=== PATIENT | female | born 1970 | race Caucasian/White ===

== ENCOUNTER 2017-10-15 16:24 | Emergency (ER) | payer SELFPAY ==
[2017-10-15 16:35] VITALS: TEMP 98.1
[2017-10-15] MEDS ORDERED: ONDANSETRON 4 MG/2 ML VIAL IVP ONE (17:07)
[2017-10-15] MEDS ORDERED: fentaNYL 100 MCG/2 ML INJ IVP ONE (17:07)
--- NOTE | 2017-10-15 17:08 | EDPHY ---
H & P Time Seen by Provider: 10/15/17 16:52 HPI/ROS: CHIEF COMPLAINT: Left-sided back and flank pain HISTORY OF PRESENT ILLNESS: Patient's symptoms started 24 hr ago. No known trauma. Severe left flank pain which is sometimes worse with movement but better standing. She had some dysuria today as well. Pain does not radiate to the anterior abdomen. Not associated with fevers or chills or vomiting or diarrhea. No skin rash. Symptoms moderate to severe currently. REVIEW OF SYSTEMS: Eye: no change in vision ENT: no sore throat Cardiac: no chest pain or syncope Pulmonary: no cough or SOB Abdomen: no vomiting, diarrhea, abdominal pain Musculoskeletal: HPI Skin: no rash Neuro: no headache Constitutional: no fever : HPI A comprehensive 10 point review of systems is otherwise negative aside from elements mentioned in the history of present illness. PAST MEDICAL HISTORY: and tubal ligation Social history: Works as a [employer] General Appearance: Alert and conversant, cooperative. Eyes: No scleral icterus. ENT, Mouth: Normal mucous membranes. Respiratory: Normal respiratory effort, breath sounds equal, lungs are clear to auscultation. Cardiovascular: Regular rate and rhythm. Gastrointestinal: Abdomen is soft and non tender. Neurological: Alert and oriented x3. Normally conversant. Face symmetric, normal movement and sensation in all extremities. Skin: Ecchymosis over the middle phalanx on the volar surface of the right ring finger. No erythema. No swelling. No lymphangitis. No decrease in the range of motion. Musculoskeletal: Patient has some left CVA and lower paraspinal tenderness. She prefers to be standing. She has normal flexion extension of all fingers of the right hand and no bony tenderness on the right ring finger. No rotation and no tenderness over the area of ecchymosis. Psychiatric: Not agitated. Emergency Department course/MDM: Urine dip negative for blood. Possibly muscular but with dysuria concern for renal colic or renal infarct. Her right ring finger does not appear fractured and there is some ecchymosis but it is not tender to palpation. She has describing numbness and tingling distally but she has preserved capillary refill and motor and sensory to light touch. 1820: Results discussed with the patient, including CT reported by Dr. Duarte at 6:13 p.m. is negative except for old scarring in the left kidney 15 mg IV Toradol, 1 oral Percocet. Most likely muscular. Does not appear to be renal infarct or a kidney stone. I think her right ring finger can be managed by observation with follow-up if things change. Smoking Status: Never smoked Constitutional: Initial Vital Signs Temperature (C) 36.7 C 10/15/17 16:32 Heart Rate 69 10/15/17 16:32 Respiratory Rate 16 10/15/17 16:32 Blood Pressure 134/89 H 10/15/17 16:32 O2 Sat (%) 96 10/15/17 16:32 O2 Delivery Mode Room Air Allergies/Adverse Reactions: codeine [Codeine] Allergy (Verified 12/18/10 18:01) Vomiting Home Medications: Medication Instructions Recorded NO HOME MEDS 12/18/10 Medical Decision Making - Diagnostics Imaging Results: Imaging Impressions Abdomen CT 10/15/17 17:25 Impression: 1. No acute abnormalities in the abdomen or pelvis. 2. Left renal scarring. 3. Ventral pelvic wall hernia. Dr. Pina discussed these findings by telephone with KANDICE MERCADO on 2016 at 18:11. Differential Diagnosis: Differential diagnosis considered for flank pain including but not limited to musculoskeletal causes, kidney stone, pyelonephritis, shingles, and intra- abdominal causes such as diverticulitis and appendicitis. - Data Points Laboratory Results: Laboratory Results 10/15/17 17:15 10/15/17 17:15 10/15/17 10/15/17 10/15/17 17:15 17:15 17:13 WBC 8.95 10^3/uL 10^3/uL (3.80-9.50) RBC 4.68 10^6/uL 10^6/uL (4.18-5.33) Hgb 15.0 g/dL g/dL (12.6-16.3) POC Hgb 14.6 gm/dL gm/dL (12.6-16.3) Hct 42.5 % % (38.0-47.0) POC Hct 43 % % (38-47) MCV 90.8 fL fL (81.5-99.8) MCH 32.1 pg pg (27.9-34.1) MCHC 35.3 g/dL g/dL (32.4-36.7) RDW 12.2 % % (11.5-15.2) Plt Count 178 10^3/uL 10^3/uL (150-400) MPV 10.2 fL fL (8.7-11.7) Neut % (Auto) 44.6 % % (39.3-74.2) Lymph % (Auto) 40.9 % % (15.0-45.0) [place] % (Auto) 6.9 % % (4.5-13.0) Eos % (Auto) 6.7 % % (0.6-7.6) Baso % (Auto) 0.6 % % (0.3-1.7) Nucleat RBC Rel Count 0.0 % % (0.0-0.2) Absolute Neuts (auto) 3.99 10^3/uL 10^3/uL (1.70-6.50) Absolute Lymphs (auto) 3.66 10^3/uL H 10^3/uL (1.00-3.00) Absolute Monos (auto) 0.62 10^3/uL 10^3/uL (0.30-0.80) Absolute Eos (auto) 0.60 10^3/uL H 10^3/uL (0.03-0.40) Absolute Basos (auto) 0.05 10^3/uL 10^3/uL (0.02-0.10) Absolute Nucleated RBC 0.00 10^3/uL 10^3/uL (0-0.01) Immature Gran % 0.3 % % (0.0-1.1) Immature Gran # 0.03 10^3/uL 10^3/uL (0.00-0.10) POC Sodium 141 mEq/L mEq/L (134-144) Sodium 145 mEq/L H mEq/L (134-144) POC Potassium 4.1 mEq/L mEq/L (3.3-5.0) Potassium 4.4 mEq/L mEq/L (3.5-5.2) POC Chloride 104 mEq/L mEq/L (97-110) Chloride 106 mEq/L mEq/L (97-110) Carbon Dioxide 24 mEq/l mEq/l (22-31) Anion Gap 15 mEq/L mEq/L (8-16) POC BUN 19 mg/dL mg/dL (7-23) BUN 16 mg/dL mg/dL (7-23) Creatinine 0.8 mg/dL mg/dL (0.6-1.0) POC Creatinine 0.8 mg/dL mg/dL (0.6-1.0) Estimated GFR > 60 Glucose 79 mg/dL mg/dL (70-100) POC Glucose 82 mg/dL mg/dL (70-100) Calcium 9.9 mg/dL mg/dL (8.5-10.4) Urine Color Urine Appearance Urine pH Ur Specific [place] Urine Protein Urine Ketones Urine Blood Urine Nitrate Urine Bilirubin Urine Urobilinogen Ur Leukocyte Esterase Urine Glucose 10/15/17 17:03 WBC RBC Hgb POC Hgb Hct POC Hct MCV MCH MCHC RDW Plt Count MPV Neut % (Auto) Lymph % (Auto) [place] % (Auto) Eos % (Auto) Baso % (Auto) Nucleat RBC Rel Count Absolute Neuts (auto) Absolute Lymphs (auto) Absolute Monos (auto) Absolute Eos (auto) Absolute Basos (auto) Absolute Nucleated RBC Immature Gran % Immature Gran # POC Sodium Sodium POC Potassium Potassium POC Chloride Chloride Carbon Dioxide Anion Gap POC BUN BUN Creatinine POC Creatinine Estimated GFR Glucose POC Glucose Calcium Urine Color PALE YELLOW Urine Appearance CLEAR Urine pH 6.0 (5.0-7.5) Ur Specific [place] 1.002 (1.002-1.030) Urine Protein NEGATIVE (NEGATIVE) Urine Ketones NEGATIVE (NEGATIVE) Urine Blood NEGATIVE (NEGATIVE) Urine Nitrate NEGATIVE (NEGATIVE) Urine Bilirubin NEGATIVE (NEGATIVE) Urine Urobilinogen NEGATIVE EU EU (0.2-1.0) Ur Leukocyte Esterase NEGATIVE (NEGATIVE) Urine Glucose NEGATIVE (NEGATIVE) Medications Given: Discontinued Medications Fentanyl (Sublimaze) 100 mcg IVP EDNOW ONE Stop: 10/15/17 17:08 Last Admin: 10/15/17 17:41 Dose: 100 mcg Ketorolac Tromethamine (Toradol) 15 mg IVP EDNOW ONE Stop: 10/15/17 18:28 Last Admin: 10/15/17 18:35 Dose: 15 mg Ondansetron HCl (Zofran) 4 mg IVP EDNOW ONE Stop: 10/15/17 17:08 Last Admin: 10/15/17 17:41 Dose: 4 mg Oxycodone/Acetaminophen (Percocet 5/325) 1 tab PO EDNOW ONE Stop: 10/15/17 18:28 Last Admin: 10/15/17 18:36 Dose: 1 tab Oxycodone/Acetaminophen (Percocet 5/325mg Prepack#4) 1 btl TAKEHOME EDNOW ONE Stop: 10/15/17 18:29 Last Admin: 10/15/17 18:37 Dose: 1 btl Point of Care Test Results: 10/15/17 17:13 POC Sodium 141 POC Potassium 4.1 POC Chloride 104 POC BUN 19 POC Creatinine 0.8 POC Glucose 82 Departure - Departure Disposition: Home, Routine, Self-Care Clinical Impression: Left flank pain Condition: Good Instructions: Flank Pain (ED) Referrals: Emily Mendoza MD [Medical Doctor] - As per Instructions
[2017-10-15 17:17] LABS: COLOR PALE YELLOW; LEUKOCYTE ESTERASE,URINE NEGATIVE (NEGATIVE); NITRITE,URINE NEGATIVE (NEGATIVE)
[2017-10-15] MEDS ORDERED: IOPAMIDOL (ISOVUE-300) 100 ML BTL ONE (17:26)
[2017-10-15 17:28] LABS: % IMMATURE GRANULYOCYTES 0.3 % (0.0-1.1); ABSOLUTE IMMATURE GRANULOCYTES 0.03 10^3/uL (0.00-0.10); ADD DIFF? NO; ADD MORPH? NO; ADD SCAN? NO; ATYPICAL LYMPHOCYTE FLAG 0 (0-99); FRAGMENT RBC FLAG 0 (0-99); HEMATOCRIT 42.5 % (38.0-47.0); LEFT SHIFT FLG 0 (0-99); LIPEMIA HEMOLYSIS FLAG 90 (0-99); MEAN CELL HEMOGLOBIN 32.1 pg (27.9-34.1); MEAN CELL HEMOGLOBIN CONCENTR. 35.3 g/dL (32.4-36.7); MEAN CELL VOLUME 90.8 fL (81.5-99.8); MEAN PLATELET VOLUME 10.2 fL (8.7-11.7); PLATELET CLUMPS FLAG 10 (0-99); PLATELET COUNT 178 10^3/uL (150-400); RED BLOOD CELL COUNT 4.68 10^6/uL (4.18-5.33); RED CELL DISTRIBUTION WIDTH 12.2 % (11.5-15.2)
[2017-10-15 17:37] LABS: ANION GAP 15 mEq/L (8-16); CALCIUM 9.9 mg/dL (8.5-10.4); CARBON DIOXIDE 24 mEq/l (22-31); CHLORIDE 106 mEq/L (97-110); CREATININE 0.8 mg/dL (0.6-1.0); GLOMERULAR FILTRATION RATE > 60; GLUCOSE 79 mg/dL (70-100); POTASSIUM 4.4 mEq/L (3.5-5.2); SODIUM 145 mEq/L (134-144)
[2017-10-15] MEDS ORDERED: KETOROLAC 30 MG/1 ML SDV IVP ONE (18:27)
[2017-10-15] MEDS ORDERED: OXYCODONE/APAP 5/325 TAB PO ONE (18:27)
[2017-10-15] MEDS ORDERED: OXYCODONE/APAP 5/325MG PREPACK#4 BTL TAKEHOME ONE (18:28)
[2017-10-15 18:57] VITALS: BP 126/87; PULSE 81; RESP 18; O2SAT 95
== END 2017-10-15 18:50 | disposition home or self-care (01) ==
DX: R10.9 Unspecified abdominal pain (principal)
CPT/HCPCS: 82947-QW; 96374; J1885; J2405; J3010; Q9967